=== PATIENT | male | born 1955 | race Caucasian/White ===

== ENCOUNTER 2022-09-22 15:48 | Emergency (ER) | payer MEDICARE ==
[~2022-09-22] VITALS: Ht 185.4 cm; Wt 118.2 kg
[2022-09-22 15:58] VITALS: TEMP 99.1
[2022-09-22 16:21] LABS: BASOPHILS % (AUTO) 0.3 % (0-1); EOSINOPHILS % (AUTO) 0 % (0-6); HEMATOCRIT 43.7 % (42.0-52.0); HEMOGLOBIN 14.1 g/dl (14.0-17.9); LYMPHOCYTES # (AUTO) 0.3 X10'3 (1.1-4.8); LYMPHOCYTES % (AUTO) 7.7 % (21-51); MEAN CORPUSCULAR HEMOGLOBIN 28.6 PG (27.0-31.0); MEAN CORPUSCULAR HGB CONC 32.4 g/dL (33.0-36.5); MEAN CORPUSCULAR VOLUME 88.5 FL (78-98); MEAN PLATELET VOLUME 8.1 FL (7.4-10.4); MONOCYTES # (AUTO) 0.2 X10'3 (0-0.9); MONOCYTES % (AUTO) 6.8 % (2-12); NEUTROPHILS % (AUTO) 85.2 % (42-75); PLATELET COUNT 98 X10'3 (140-440); RED BLOOD COUNT 4.93 X10'6 (4.70-6.10); RED CELL DISTRIBUTION WIDTH 15.4 % (11.5-14.5); WHITE BLOOD COUNT 3.5 X10'3 (4.5-11.0)
[2022-09-22] MEDS ORDERED: ondansetron 4mg rapidly disintigrating tab PO STA (16:26)
[2022-09-22] MEDS ORDERED: pantoprazole 40mg Tablet.DR PO ONE (16:30)
[2022-09-22 16:44] LABS: ALANINE AMINOTRANSFERASE 17 U/L (12-78); ALBUMIN 3.7 G/DL (3.4-5.0); ALBUMIN/GLOBULIN RATIO 0.9 (1.1-1.5); ALKALINE PHOSPHATASE 71 IU/L (46-116); ANION GAP 11 (8-16); ASPARTATE AMINO TRANSFERASE 33 U/L (10-37); BLOOD UREA NITROGEN 17 MG/DL (7-18); BUN/CREATININE RATIO 19.5 (10.0-20.0); CHLORIDE 100 MMOL/L (99-107); CREATININE 0.87 MG/DL (0.60-1.10); GLUCOSE 103 MG/DL (70-104); LIPASE < 50 U/L (73-393); POTASSIUM 3.4 MMOL/L (3.5-5.1); SODIUM 139 MMOL/L (135-145); TOTAL PROTEIN 7.6 G/DL (6.4-8.2); eGFR 87 ML/MIN
[2022-09-22 16:51] LABS: CALCIUM 8.6 MG/DL (8.5-10.1)
[2022-09-22] MEDS ORDERED: magnesium Cl slow-release 64mg tablet PO STA (16:54)
[2022-09-22] MEDS ORDERED: potassium Cl 20 mEq SR tablet PO STA (16:54)
[2022-09-22 17:05] VITALS: BP 167/83; PULSE 79; RESP 15; O2SAT 92
[2022-09-22 17:13] LABS: CLARITY,URINE CLEAR (Clear); COLOR,URINE YELLOW (Yellow); GLUCOSE, URINE NEGATIVE (Neg); KETONES,URINE >=80 mg/dl (Neg); LEUKOCYTE ESTERASE ,URINE NEGATIVE (Neg); NITRITES, URINE NEGATIVE (Neg); OCCULT BLOOD,URINE TRACE-INTACT (Neg); PH,URINE 6.5 (4.8-8.0); PROTEIN,URINE 100 mg/dl (Neg); UROBILINOGEN,URINE >=8.0 E.U/dL (0.2-1.0)
[2022-09-22 17:22] LABS: UA COLLECTION TYPE VOIDED
[2022-09-22 17:23] LABS: MUCUS STRANDS FEW /LPF (Neg); SQUAMOUS EPITHELIAL CELL,UR FEW /LPF (FEW)
[2022-09-22 17:24] LABS: BACTERIA,URINE FEW /HPF (Neg); RBC,URINE 0-2 /HPF (0-2); WBC,URINE 0-4 /HPF (0-4)
[2022-09-22] MEDS ORDERED: acetaminophen 325mg tablet PO ONE (17:50)
[2022-09-22] MEDS ORDERED: POLY17PO10 PO (17:55)
[2022-09-22] MEDS ORDERED: SIME80TA16 PO (17:55)
[2022-09-22] MEDS ORDERED: ONDA4TAB12 PO (17:55)
== END 2022-09-22 18:20 | disposition home or self-care (01) ==
LOC: ER 15:49
DX: R10.33 Periumbilical pain (principal); R10.13 Epigastric pain; R06.02 Shortness of breath; I50.9 Heart failure, unspecified; R11.0 Nausea
CPT/HCPCS: 71045; 80053; 81001; 83690; 83880; 84484; 85025; 93005; 99285

== ENCOUNTER 2024-01-09 12:06 | Inpatient (IN) | payer MEDICARE ==
[2024-01-09] VITALS (10 sets, daily range): BP systolic 132; BP diastolic 70; PULSE 88–121; RESP 18–31; TEMP 97.7; O2SAT 84–98
[~2024-01-09] VITALS: Ht 185.4 cm; Wt 110.4 kg
[~2024-01-09 12:06] MED LIST: ONDA-243 PO; SIME80TA16 PO
[2024-01-09 12:59] LABS: BASOPHILS % (AUTO) 0 % (0-1); EOSINOPHILS % (AUTO) 0.3 % (0-6); HEMATOCRIT 37.6 % (42.0-52.0); HEMOGLOBIN 12.6 g/dl (14.0-17.9); LYMPHOCYTES # (AUTO) 0.2 X10'3 (1.1-4.8); LYMPHOCYTES % (AUTO) 1.7 % (21-51); MEAN CORPUSCULAR HEMOGLOBIN 29.8 PG (27.0-31.0); MEAN CORPUSCULAR HGB CONC 33.4 g/dL (33.0-36.5); MEAN CORPUSCULAR VOLUME 89.1 FL (78-98); MEAN PLATELET VOLUME 7.5 FL (7.4-10.4); MONOCYTES # (AUTO) 0.3 X10'3 (0-0.9); MONOCYTES % (AUTO) 2.4 % (2-12); NEUTROPHILS # (AUTO) 10.3 X10'3 (1.8-7.7); NEUTROPHILS % (AUTO) 95.6 % (42-75); PLATELET COUNT 193 X10'3 (140-440); RED BLOOD COUNT 4.22 X10'6 (4.70-6.10); RED CELL DISTRIBUTION WIDTH 15.6 % (11.5-14.5); WHITE BLOOD COUNT 10.8 X10'3 (4.5-11.0)
[2024-01-09 13:24] LABS: ALBUMIN 2.5 G/DL (3.4-5.0); ALBUMIN/GLOBULIN RATIO 0.6 (1.1-1.5); ALKALINE PHOSPHATASE 49 IU/L (46-116); ANION GAP 9 (8-16); ASPARTATE AMINO TRANSFERASE 19 U/L (10-37); BILIRUBIN,TOTAL 1.3 MG/DL (0.1-1.0); BLOOD UREA NITROGEN 30 MG/DL (7-18); BUN/CREATININE RATIO 25.6 (10.0-20.0); CALCIUM 8.4 MG/DL (8.5-10.1); CHLORIDE 95 MMOL/L (99-107); CREATININE 1.17 MG/DL (0.60-1.10); GLUCOSE 130 MG/DL (70-104); POTASSIUM 3.2 MMOL/L (3.5-5.1); SODIUM 130 MMOL/L (135-145); TOTAL CARBON DIOXIDE 25.7 MMOL/L (24-32); TOTAL PROTEIN 6.9 G/DL (6.4-8.2); eCRCL 66 ML/MIN; eGFR 62 ML/MIN
[2024-01-09 13:25] LABS: ALANINE AMINOTRANSFERASE < 6 U/L (12-78)
[2024-01-09 13:31] LABS: PLATELET ESTIMATE NORMAL; TOTAL CELLS COUNTED 100
[2024-01-09] MEDS: ipratropium/albuterol 3ml nebule NEB ONE (13:34)
[2024-01-09] MEDS: METHYLPREDNISOLONE SOD SUCC 125 MG/2ML INJ. IV SCH (14:20)
[2024-01-09] MEDS ORDERED: iohexol 350MG/ML 100ml bottle IV ONE (15:16)
[2024-01-09] MEDS ORDERED: magnesium sulf-water 4G/100mL 100 ML IV PRN (15:30)
[2024-01-09] MEDS ORDERED: ondansetron/PF 4mg/2ml inj IV PRN (15:30)
[2024-01-09] MEDS ORDERED: potassium Cl 20 mEq SR tablet PO PRN (15:30)
[2024-01-09] MEDS ORDERED: potassium Cl 40MEQ/1/2NS 520ml 520 ML IV PRN (15:30)
[2024-01-09] MEDS ORDERED: magnesium Cl slow-release 64mg tablet PO PRN (15:30)
[2024-01-09] MEDS ORDERED: magnesium sulf-water 2g/50mL 50 ML IV PRN (15:30)
[2024-01-09] MEDS ORDERED: acetaminophen 325mg tablet PO PRN (15:30)
[2024-01-09 15:54] LABS: APTT 29 SECONDS (22-32); D-DIMER 2.05 MG/L FEU (0-0.50); INR 1.1 INR
[2024-01-09] MEDS: albuterol 2.5 MG/3 ML nebule NEB SCH (16:00)
[2024-01-09] MEDS: albuterol 2.5 MG/3 ML nebule NEB ONE (16:03)
[2024-01-09] MEDS: normal saline 1000ml 1,000 ML IV ONE (16:10)
[2024-01-09] MEDS: azithromycin/NS 500mg/250ml 250 ML IV ONE (16:11)
[2024-01-09] MEDS: normal saline 1000ml 1,000 ML IV SCH (16:12)
[2024-01-09] MEDS: CefTRIAXone/D5W-Rocephin 1gm 50 ML IV SCH (16:13)
[2024-01-09 16:56] LABS: BILIRUBIN,URINE NEGATIVE (Neg); CLARITY,URINE CLEAR (Clear); COLOR,URINE YELLOW (Yellow); GLUCOSE, URINE NEGATIVE (Neg); KETONES,URINE TRACE mg/dl (Neg); LEUKOCYTE ESTERASE ,URINE NEGATIVE (Neg); NITRITES, URINE NEGATIVE (Neg); OCCULT BLOOD,URINE MODERATE (Neg); PH,URINE 6.5 (4.8-8.0); PROTEIN,URINE 100 mg/dl (Neg)
[2024-01-09 17:19] LABS: UA COLLECTION TYPE NON-SPECIFIED
[2024-01-09] MEDS: morphine 2 MG/ML inj. syringe IV PRN (17:21)
[2024-01-09 17:24] LABS: AMORPHOUS PHOSPHATES 1+; BACTERIA,URINE FEW /HPF (Neg); SQUAMOUS EPITHELIAL CELL,UR FEW /LPF (FEW); WBC,URINE 0-4 /HPF (0-4)
[2024-01-09 17:25] LABS: FINE GRANULAR CAST 0-3 /LPF (NEGATIVE)
[2024-01-09] MEDS: HYDROcodone/acetaminophen 5mg/325mg tablet PO PRN (17:54)
[2024-01-09] MEDS ORDERED: IBUP-1985 PO (18:05)
[2024-01-09] MEDS ORDERED: FURO40TA4 PO (18:05)
[2024-01-09] MEDS ORDERED: SILD100T70 PO (18:05)
[2024-01-09] MEDS ORDERED: LISI20TA28 PO (18:05)
[2024-01-09] MEDS ORDERED: CARV6.253 PO (18:05)
[2024-01-09] MEDS ORDERED: POTA8CAP20 PO (18:05)
[2024-01-09] MEDS: acetaminophen 325mg tablet PO PRN (22:17)
[2024-01-09] MEDS: methylPREDNISolone sod succ 125mg/2ml vial IV SCH (22:28)
[2024-01-10] VITALS (18 sets, daily range): BP systolic 103–150; BP diastolic 56–87; PULSE 65–108; RESP 16–28; TEMP 96.4–98.3; O2SAT 83–98
[2024-01-10 08:08] LABS: BASOPHILS % (AUTO) 0 % (0-1); EOSINOPHILS % (AUTO) 0.1 % (0-6); HEMATOCRIT 37.1 % (42.0-52.0); HEMOGLOBIN 12.3 g/dl (14.0-17.9); LYMPHOCYTES # (AUTO) 0.3 X10'3 (1.1-4.8); MEAN CORPUSCULAR HEMOGLOBIN 29.5 PG (27.0-31.0); MEAN CORPUSCULAR HGB CONC 33.2 g/dL (33.0-36.5); MEAN PLATELET VOLUME 7.5 FL (7.4-10.4); MONOCYTES # (AUTO) 0.3 X10'3 (0-0.9); MONOCYTES % (AUTO) 3.3 % (2-12); NEUTROPHILS # (AUTO) 9.9 X10'3 (1.8-7.7); NEUTROPHILS % (AUTO) 93.6 % (42-75); PLATELET COUNT 225 X10'3 (140-440); RED BLOOD COUNT 4.17 X10'6 (4.70-6.10); RED CELL DISTRIBUTION WIDTH 15.9 % (11.5-14.5); WHITE BLOOD COUNT 10.6 X10'3 (4.5-11.0)
[2024-01-10 08:11] LABS: ALANINE AMINOTRANSFERASE 9 U/L (12-78); ALBUMIN 2.2 G/DL (3.4-5.0); ALBUMIN/GLOBULIN RATIO 0.5 (1.1-1.5); ALKALINE PHOSPHATASE 49 IU/L (46-116); ANION GAP 9 (8-16); ASPARTATE AMINO TRANSFERASE 17 U/L (10-37); BILIRUBIN,TOTAL 0.5 MG/DL (0.1-1.0); BLOOD UREA NITROGEN 30 MG/DL (7-18); CALCIUM 8.6 MG/DL (8.5-10.1); CHLORIDE 101 MMOL/L (99-107); CREATININE 1.07 MG/DL (0.60-1.10); GLUCOSE 141 MG/DL (70-104); POTASSIUM 3.2 MMOL/L (3.5-5.1); SODIUM 137 MMOL/L (135-145); TOTAL CARBON DIOXIDE 26.8 MMOL/L (24-32); TOTAL PROTEIN 6.8 G/DL (6.4-8.2); eCRCL 71 ML/MIN; eGFR 68 ML/MIN
[2024-01-10] MEDS: azithromycin/NS 500mg/250ml 250 ML IV SCH (08:20)
[2024-01-10] MEDS: CefTRIAXone 2gm/D5W 50ml BAG 50 ML IV SCH (08:20)
[2024-01-10 10:24] LABS: ANISOCYTOSIS 1+; PLATELET ESTIMATE NORMAL; POLYCHROMASIA FEW; TOTAL CELLS COUNTED 100; TOXIC GRANULATION 1+
[2024-01-10] MEDS: potassium Cl 20 mEq SR tablet PO PRN (10:33)
[2024-01-10] MEDS: magnesium hydroxide 30ml (MOM) UD suspension PO ONE (12:17)
[2024-01-10] MEDS: carvedilol 6.25mg tablet PO SCH (19:25)
[2024-01-10] MEDS: heparin, porcine 5000 units/ml vial SQ SCH (19:25)
[2024-01-11] VITALS (22 sets, daily range): BP systolic 134–163; BP diastolic 78–84; PULSE 78–93; RESP 15–20; TEMP 97.4–98.4; O2SAT 90–96
[2024-01-11 06:21] LABS: BASOPHILS % (AUTO) 0 % (0-1); EOSINOPHILS % (AUTO) 0 % (0-6); HEMATOCRIT 34.7 % (42.0-52.0); HEMOGLOBIN 11.4 g/dl (14.0-17.9); LYMPHOCYTES # (AUTO) 0.3 X10'3 (1.1-4.8); LYMPHOCYTES % (AUTO) 2.9 % (21-51); MEAN CORPUSCULAR HEMOGLOBIN 29.6 PG (27.0-31.0); MEAN CORPUSCULAR HGB CONC 32.9 g/dL (33.0-36.5); MEAN CORPUSCULAR VOLUME 89.8 FL (78-98); MEAN PLATELET VOLUME 7.5 FL (7.4-10.4); MONOCYTES # (AUTO) 0.4 X10'3 (0-0.9); MONOCYTES % (AUTO) 3.6 % (2-12); NEUTROPHILS # (AUTO) 11.2 X10'3 (1.8-7.7); NEUTROPHILS % (AUTO) 93.5 % (42-75); PLATELET COUNT 249 X10'3 (140-440); RED BLOOD COUNT 3.86 X10'6 (4.70-6.10); RED CELL DISTRIBUTION WIDTH 16.2 % (11.5-14.5)
[2024-01-11 06:30] LABS: ALANINE AMINOTRANSFERASE 11 U/L (12-78); ALBUMIN 2.2 G/DL (3.4-5.0); ALBUMIN/GLOBULIN RATIO 0.5 (1.1-1.5); ALKALINE PHOSPHATASE 52 IU/L (46-116); ANION GAP 6 (8-16); ASPARTATE AMINO TRANSFERASE 25 U/L (10-37); BILIRUBIN,TOTAL 0.3 MG/DL (0.1-1.0); BLOOD UREA NITROGEN 46 MG/DL (7-18); BUN/CREATININE RATIO 43.8 (10.0-20.0); CALCIUM 8.5 MG/DL (8.5-10.1); CHLORIDE 102 MMOL/L (99-107); CREATININE 1.05 MG/DL (0.60-1.10); GLUCOSE 135 MG/DL (70-104); POTASSIUM 4.1 MMOL/L (3.5-5.1); SODIUM 136 MMOL/L (135-145); TOTAL CARBON DIOXIDE 27.9 MMOL/L (24-32); TOTAL PROTEIN 6.6 G/DL (6.4-8.2); eCRCL 73 ML/MIN; eGFR 70 ML/MIN
[2024-01-11 07:02] LABS: ANISOCYTOSIS 1+; PLATELET ESTIMATE NORMAL; TOTAL CELLS COUNTED 100
[2024-01-11] MEDS: lisinopril 20mg tablet PO SCH (08:02)
[2024-01-11] MEDS: Melatonin 3mg tablet PO PRN (19:42)
[2024-01-11] MEDS: methylPREDNISolone sod succ/PF 40mg inj. IV SCH (20:13)
[2024-01-12] VITALS (18 sets, daily range): BP systolic 116–163; BP diastolic 84–117; PULSE 79–109; RESP 15–24; TEMP 97.6–97.9; O2SAT 76–94
[2024-01-12] MEDS: temazepam 15mg capsule PO PRN (01:03)
[2024-01-12 05:46] LABS: BASOPHILS % (AUTO) 0.1 % (0-1); EOSINOPHILS % (AUTO) 0.1 % (0-6); HEMATOCRIT 36.6 % (42.0-52.0); HEMOGLOBIN 11.8 g/dl (14.0-17.9); LYMPHOCYTES # (AUTO) 0.5 X10'3 (1.1-4.8); LYMPHOCYTES % (AUTO) 4.2 % (21-51); MEAN CORPUSCULAR HEMOGLOBIN 28.9 PG (27.0-31.0); MEAN CORPUSCULAR HGB CONC 32.2 g/dL (33.0-36.5); MEAN CORPUSCULAR VOLUME 89.9 FL (78-98); MEAN PLATELET VOLUME 6.9 FL (7.4-10.4); MONOCYTES # (AUTO) 0.8 X10'3 (0-0.9); MONOCYTES % (AUTO) 6.2 % (2-12); NEUTROPHILS # (AUTO) 11.2 X10'3 (1.8-7.7); NEUTROPHILS % (AUTO) 89.4 % (42-75); PLATELET COUNT 274 X10'3 (140-440); RED BLOOD COUNT 4.07 X10'6 (4.70-6.10); RED CELL DISTRIBUTION WIDTH 16.1 % (11.5-14.5); WHITE BLOOD COUNT 12.5 X10'3 (4.5-11.0)
[2024-01-12 06:15] LABS: ALANINE AMINOTRANSFERASE 12 U/L (12-78); ALBUMIN 2.3 G/DL (3.4-5.0); ALBUMIN/GLOBULIN RATIO 0.5 (1.1-1.5); ALKALINE PHOSPHATASE 52 IU/L (46-116); ANION GAP 3 (8-16); ASPARTATE AMINO TRANSFERASE 21 U/L (10-37); BILIRUBIN,TOTAL 0.4 MG/DL (0.1-1.0); BLOOD UREA NITROGEN 45 MG/DL (7-18); BUN/CREATININE RATIO 46.9 (10.0-20.0); CALCIUM 8.7 MG/DL (8.5-10.1); CHLORIDE 103 MMOL/L (99-107); CREATININE 0.96 MG/DL (0.60-1.10); GLUCOSE 135 MG/DL (70-104); POTASSIUM 4.3 MMOL/L (3.5-5.1); SODIUM 139 MMOL/L (135-145); TOTAL CARBON DIOXIDE 33.5 MMOL/L (24-32); TOTAL PROTEIN 6.6 G/DL (6.4-8.2); eCRCL 81 ML/MIN; eGFR 77 ML/MIN
[2024-01-12 07:43] LABS: ANISOCYTOSIS 1+; PLATELET ESTIMATE NORMAL; TOTAL CELLS COUNTED 100
[2024-01-12 08:04] LABS: ABG BASE EXCESS -0.3 mmol/L (-2.0-3.0); ABG OXYGEN SATURATION 92.3 % (94.0-98.0); ABG PCO2 (T) 48.4 mmHg (35.0-48.0); ABG PH (T) 7.346 (7.350-7.450); ABG PO2 (T) 61.6 mmHg (83.0-108.0); ALLEN'S TEST POSITIVE; FCOHb 0.4 % (0.5-1.5); FHHb 7.7 % (0.0-5.0); FLOW 12 L/min; FO2Hb 91.9 % (94.0-98.0); MODE MASK - VENTI; PATIENT TEMPERATURE 36.5; TOTAL HEMOGLOBIN 13.2 G/dl (13.5-17.5)
[2024-01-12] MEDS ORDERED: magnesium hydroxide 30ml (MOM) UD suspension PO PRN (10:25)
[2024-01-12] MEDS: furosemide 40mg tablet PO SCH (16:53)
[2024-01-13] VITALS (19 sets, daily range): BP systolic 103–146; BP diastolic 68–75; PULSE 69–87; RESP 14–22; TEMP 97.6–98.8; O2SAT 90–95
[2024-01-13 06:55] LABS: BASOPHILS % (AUTO) 0.1 % (0-1); EOSINOPHILS % (AUTO) 0 % (0-6); HEMATOCRIT 38.1 % (42.0-52.0); HEMOGLOBIN 12.3 g/dl (14.0-17.9); LYMPHOCYTES # (AUTO) 0.8 X10'3 (1.1-4.8); LYMPHOCYTES % (AUTO) 5.4 % (21-51); MEAN CORPUSCULAR HGB CONC 32.2 g/dL (33.0-36.5); MEAN PLATELET VOLUME 6.9 FL (7.4-10.4); MONOCYTES # (AUTO) 1.2 X10'3 (0-0.9); MONOCYTES % (AUTO) 8.4 % (2-12); NEUTROPHILS # (AUTO) 12.8 X10'3 (1.8-7.7); NEUTROPHILS % (AUTO) 86.1 % (42-75); PLATELET COUNT 315 X10'3 (140-440); RED BLOOD COUNT 4.24 X10'6 (4.70-6.10); RED CELL DISTRIBUTION WIDTH 15.8 % (11.5-14.5); WHITE BLOOD COUNT 14.8 X10'3 (4.5-11.0)
[2024-01-13 06:58] LABS: ALANINE AMINOTRANSFERASE 14 U/L (12-78); ALBUMIN 2.3 G/DL (3.4-5.0); ALBUMIN/GLOBULIN RATIO 0.6 (1.1-1.5); ALKALINE PHOSPHATASE 58 IU/L (46-116); ANION GAP 4 (8-16); ASPARTATE AMINO TRANSFERASE 22 U/L (10-37); BILIRUBIN,TOTAL 0.4 MG/DL (0.1-1.0); BLOOD UREA NITROGEN 39 MG/DL (7-18); BUN/CREATININE RATIO 44.8 (10.0-20.0); CALCIUM 8.3 MG/DL (8.5-10.1); CHLORIDE 102 MMOL/L (99-107); CREATININE 0.87 MG/DL (0.60-1.10); GLUCOSE 112 MG/DL (70-104); POTASSIUM 4.1 MMOL/L (3.5-5.1); SODIUM 139 MMOL/L (135-145); TOTAL CARBON DIOXIDE 33.5 MMOL/L (24-32); TOTAL PROTEIN 6.3 G/DL (6.4-8.2); eCRCL 89 ML/MIN; eGFR 87 ML/MIN
[2024-01-13 08:06] LABS: PLATELET ESTIMATE NORMAL; STOMATOCYTES FEW; TOTAL CELLS COUNTED 100
[2024-01-13] MEDS: guaiFENesin ER 600mg tablet PO SCH (15:49)
[2024-01-13] MEDS: lactose-reduced food (Ensure Enlive) - 237ml bottle PO SCH (17:59)
[2024-01-14] VITALS (27 sets, daily range): BP systolic 96–168; BP diastolic 51–92; PULSE 74–90; RESP 15–23; TEMP 97.3–99; O2SAT 87–97
[2024-01-14 06:11] LABS: BASOPHILS % (AUTO) 0.1 % (0-1); EOSINOPHILS % (AUTO) 0 % (0-6); HEMATOCRIT 37.3 % (42.0-52.0); HEMOGLOBIN 11.9 g/dl (14.0-17.9); LYMPHOCYTES # (AUTO) 0.8 X10'3 (1.1-4.8); LYMPHOCYTES % (AUTO) 6.6 % (21-51); MEAN CORPUSCULAR HEMOGLOBIN 28.5 PG (27.0-31.0); MONOCYTES # (AUTO) 0.5 X10'3 (0-0.9); MONOCYTES % (AUTO) 4.3 % (2-12); NEUTROPHILS # (AUTO) 10.5 X10'3 (1.8-7.7); PLATELET COUNT 250 X10'3 (140-440); RED BLOOD COUNT 4.19 X10'6 (4.70-6.10); RED CELL DISTRIBUTION WIDTH 15.4 % (11.5-14.5); WHITE BLOOD COUNT 11.8 X10'3 (4.5-11.0)
[2024-01-14 06:21] LABS: ALANINE AMINOTRANSFERASE 16 U/L (12-78); ALBUMIN 2.3 G/DL (3.4-5.0); ALBUMIN/GLOBULIN RATIO 0.6 (1.1-1.5); ALKALINE PHOSPHATASE 41 IU/L (46-116); ANION GAP 5 (8-16); ASPARTATE AMINO TRANSFERASE 17 U/L (10-37); BILIRUBIN,TOTAL 0.4 MG/DL (0.1-1.0); BLOOD UREA NITROGEN 32 MG/DL (7-18); BUN/CREATININE RATIO 38.1 (10.0-20.0); CALCIUM 8.3 MG/DL (8.5-10.1); CHLORIDE 103 MMOL/L (99-107); CREATININE 0.84 MG/DL (0.60-1.10); GLUCOSE 120 MG/DL (70-104); POTASSIUM 4.5 MMOL/L (3.5-5.1); SODIUM 141 MMOL/L (135-145); TOTAL CARBON DIOXIDE 33.4 MMOL/L (24-32); TOTAL PROTEIN 5.9 G/DL (6.4-8.2); eCRCL 92 ML/MIN; eGFR 90 ML/MIN
[2024-01-14] MEDS ORDERED: metoprolol tartrate 1mg/ml inj IV PRN (12:35)
[2024-01-14] MEDS ORDERED: aminophylline 250mg/10ml inj. IV PRN (12:35)
[2024-01-14] MEDS ORDERED: nitroGLYCERIN 0.4mg SUBLingual tab SL PRN (12:35)
[2024-01-14] MEDS: regadenoson 0.4mg/5ml syringe IV PRN (15:46)
[2024-01-15] VITALS (11 sets, daily range): BP systolic 132–168; BP diastolic 74–76; PULSE 72–85; RESP 16–20; TEMP 98.2–98.5; O2SAT 93–96
[2024-01-15 09:16] LABS: BASOPHILS % (AUTO) 0.1 % (0-1); EOSINOPHILS % (AUTO) 0.2 % (0-6); HEMATOCRIT 37.8 % (42.0-52.0); HEMOGLOBIN 12.3 g/dl (14.0-17.9); LYMPHOCYTES # (AUTO) 0.8 X10'3 (1.1-4.8); LYMPHOCYTES % (AUTO) 7.4 % (21-51); MEAN CORPUSCULAR HEMOGLOBIN 28.8 PG (27.0-31.0); MEAN CORPUSCULAR HGB CONC 32.5 g/dL (33.0-36.5); MEAN CORPUSCULAR VOLUME 88.5 FL (78-98); MEAN PLATELET VOLUME 7.1 FL (7.4-10.4); MONOCYTES # (AUTO) 0.3 X10'3 (0-0.9); MONOCYTES % (AUTO) 2.3 % (2-12); PLATELET COUNT 265 X10'3 (140-440); RED BLOOD COUNT 4.27 X10'6 (4.70-6.10); RED CELL DISTRIBUTION WIDTH 15.5 % (11.5-14.5); WHITE BLOOD COUNT 11.1 X10'3 (4.5-11.0)
[2024-01-15 09:28] LABS: ALANINE AMINOTRANSFERASE 14 U/L (12-78); ALBUMIN 2.4 G/DL (3.4-5.0); ALBUMIN/GLOBULIN RATIO 0.7 (1.1-1.5); ALKALINE PHOSPHATASE 35 IU/L (46-116); ANION GAP 1 (8-16); ASPARTATE AMINO TRANSFERASE 17 U/L (10-37); BILIRUBIN,TOTAL 0.5 MG/DL (0.1-1.0); BLOOD UREA NITROGEN 26 MG/DL (7-18); BUN/CREATININE RATIO 36.1 (10.0-20.0); CHLORIDE 101 MMOL/L (99-107); CREATININE 0.72 MG/DL (0.60-1.10); GLUCOSE 138 MG/DL (70-104); POTASSIUM 3.9 MMOL/L (3.5-5.1); SODIUM 136 MMOL/L (135-145); TOTAL CARBON DIOXIDE 33.6 MMOL/L (24-32); TOTAL PROTEIN 5.7 G/DL (6.4-8.2); eCRCL 108 ML/MIN; eGFR > 90 ML/MIN
[2024-01-15 10:31] LABS: PLATELET ESTIMATE NORMAL; TOTAL CELLS COUNTED 100
== END 2024-01-15 11:28 | DRG 871 ==
LOC: ER 12:06 → ED HOLD 15:36 → PCU 3S 20:30
PROVIDERS: ADMIT Internal Medicine; ATTEND Internal Medicine
PROC: B32T1ZZ Computerized Tomography (CT Scan) of Left Pulmonary Artery using Low Osmolar Contrast (ICD-10-PCS; 2024-01-09)
PROC: B3201ZZ Computerized Tomography (CT Scan) of Thoracic Aorta using Low Osmolar Contrast (ICD-10-PCS; 2024-01-09)
PROC: B32S1ZZ Computerized Tomography (CT Scan) of Right Pulmonary Artery using Low Osmolar Contrast (ICD-10-PCS; 2024-01-09)
PROC: 4A02XM4 Measurement of Cardiac Total Activity, External Approach (ICD-10-PCS; principal; 2024-01-14)
PROC: 3E033HZ Introduction of Radioactive Substance into Peripheral Vein, Percutaneous Approach (ICD-10-PCS; 2024-01-14)
DX: A41.9 Sepsis, unspecified organism (principal); G92.8 Other toxic encephalopathy; J96.01 Acute respiratory failure with hypoxia; J15.69 Pneumonia due to other Gram-negative bacteria; J44.1 Chronic obstructive pulmonary disease with (acute) exacerbation; J44.0 Chronic obstructive pulmonary disease with (acute) lower respiratory infection; R04.2 Hemoptysis; E87.1 Hypo-osmolality and hyponatremia; I50.30 Unspecified diastolic (congestive) heart failure; E87.29 Other acidosis; Z20.822 Contact with and (suspected) exposure to COVID-19; I11.0 Hypertensive heart disease with heart failure; E87.6 Hypokalemia; D64.9 Anemia, unspecified; I50.9 Heart failure, unspecified; Z87.891 Personal history of nicotine dependence; Z79.899 Other long term (current) drug therapy
CPT/HCPCS: 36415; 36600; 71045; 71275; 78452; 80053; 81001; 82803; 83605; 83880; 84145; 84484; 85007; 85018; 85025; 85379; 85610; 85651; 85730; 87040; 87081; 87502; 87503; 87811; 93005; 93017; 93306; 94640; 94760; 96374; 97161; 97530; 99291; A4615; A6258; A9500; G0378; J0456; J0696; J1644; J2270; J2785; J2919; J2930; J7030; Q9967

== ENCOUNTER 2024-03-02 12:24 | Inpatient (IN) | payer MEDICARE ==
[2024-03-02] VITALS (9 sets, daily range): BP systolic 108–154; BP diastolic 60–94; PULSE 95–108; RESP 16–33; TEMP 98.7; O2SAT 95–100
[~2024-03-02] VITALS: Ht 185.4 cm; Wt 109.1 kg
[~2024-03-02 12:24] MED LIST changes: +CARV6.253 PO; +FURO40TA4 PO; +IBUP-1985 PO; +LISI20TA28 PO; +POTA8CAP20 PO; +SILD100T70 PO
[2024-03-02 14:26] LABS: BASOPHILS % (AUTO) 0.3 % (0-1); EOSINOPHILS % (AUTO) 0.2 % (0-6); HEMATOCRIT 37.6 % (42.0-52.0); LYMPHOCYTES # (AUTO) 0.6 X10'3 (1.1-4.8); MEAN CORPUSCULAR HEMOGLOBIN 29.5 PG (27.0-31.0); MEAN CORPUSCULAR HGB CONC 31.8 g/dL (33.0-36.5); MEAN CORPUSCULAR VOLUME 92.6 FL (78-98); MEAN PLATELET VOLUME 7.2 FL (7.4-10.4); MONOCYTES # (AUTO) 0.7 X10'3 (0-0.9); MONOCYTES % (AUTO) 6.5 % (2-12); PLATELET COUNT 201 X10'3 (140-440); RED BLOOD COUNT 4.06 X10'6 (4.70-6.10); RED CELL DISTRIBUTION WIDTH 17.6 % (11.5-14.5); WHITE BLOOD COUNT 11.4 X10'3 (4.5-11.0)
[2024-03-02] MEDS: ondansetron/PF 4mg/2ml inj IV PRN (14:28)
[2024-03-02] MEDS: morphine 4 MG/ML inj SYRINge IV ONE (14:30)
[2024-03-02 14:55] LABS: ALANINE AMINOTRANSFERASE 7 U/L (12-78); ALBUMIN 3.2 G/DL (3.4-5.0); ALKALINE PHOSPHATASE 52 IU/L (46-116); ANION GAP 8 (8-16); ASPARTATE AMINO TRANSFERASE 9 U/L (10-37); BLOOD UREA NITROGEN 20 MG/DL (7-18); CALCIUM 8.4 MG/DL (8.5-10.1); CHLORIDE 103 MMOL/L (99-107); GLUCOSE 103 MG/DL (70-104); POTASSIUM 3.9 MMOL/L (3.5-5.1); SODIUM 137 MMOL/L (135-145); TOTAL CARBON DIOXIDE 25.8 MMOL/L (24-32); TOTAL PROTEIN 6.5 G/DL (6.4-8.2); eCRCL 96 ML/MIN; eGFR > 90 ML/MIN
[2024-03-02] MEDS ORDERED: iohexol 300mg/ml 100ml inj. ONE (15:24)
[2024-03-02] MEDS: piperacillin/tazo 3.375gm/50ml 50 ML IV ONE (15:26)
[2024-03-02] MEDS: acetaminophen 1,000mg/100ml IV 100 ML IV ONE ×2 (15:26→20:03)
[2024-03-02 16:50] LABS: BILIRUBIN,URINE NEGATIVE (Neg); CLARITY,URINE CLEAR (Clear); COLOR,URINE YELLOW (Yellow); GLUCOSE, URINE NEGATIVE (Neg); KETONES,URINE NEGATIVE (Neg); LEUKOCYTE ESTERASE ,URINE NEGATIVE (Neg); NITRITES, URINE NEGATIVE (Neg); OCCULT BLOOD,URINE NEGATIVE (Neg); PH,URINE 7.5 (4.8-8.0); PROTEIN,URINE TRACE mg/dl (Neg); UROBILINOGEN,URINE 0.2 E.U/dL (0.2-1.0)
[2024-03-02 16:57] LABS: UA COLLECTION TYPE CLN CATCH MIDSTREAM
[2024-03-02 16:59] LABS: BACTERIA,URINE NONE SEEN /HPF (Neg); MUCUS STRANDS NONE SEEN /LPF (Neg); RBC,URINE NONE SEEN /HPF (0-2); SQUAMOUS EPITHELIAL CELL,UR FEW /LPF (FEW); WBC,URINE 0-4 /HPF (0-4)
[2024-03-02] MEDS ORDERED: magnesium sulf-water 4G/100mL 100 ML IV PRN (17:45)
[2024-03-02] MEDS ORDERED: acetaminophen 325mg tablet PO PRN ×2 (17:45)
[2024-03-02] MEDS ORDERED: magnesium hydroxide 30ml (MOM) UD suspension PO PRN (17:45)
[2024-03-02] MEDS ORDERED: morphine 2 MG/ML inj. syringe IV PRN ×3 (17:45→18:50)
[2024-03-02] MEDS ORDERED: potassium Cl 20 mEq SR tablet PO PRN ×2 (17:45)
[2024-03-02] MEDS ORDERED: magnesium Cl slow-release 64mg tablet PO PRN (17:45)
[2024-03-02] MEDS ORDERED: ondansetron/PF 4mg/2ml inj IV PRN ×2 (17:45→18:50)
[2024-03-02] MEDS ORDERED: potassium Cl 40MEQ/1/2NS 520ml 520 ML IV PRN (17:45)
[2024-03-02] MEDS ORDERED: magnesium sulf-water 2g/50mL 50 ML IV PRN (17:45)
[2024-03-02] MEDS: piperacillin/tazo 3.375gm/50ml 50 ML IV SCH (17:50)
[2024-03-02] MEDS: normal saline 1000ml 1,000 ML IV SCH (18:31)
[2024-03-02] MEDS: ketorolac trometh 15mg/ml vial 15 MG/ML ML IV ONE (18:31)
[2024-03-02] MEDS ORDERED: sevoflurane 250ml liquid IH ONE (18:49)
[2024-03-02] MEDS ORDERED: hydrALAZINE 20mg/ml inj. IV PRN (18:50)
[2024-03-02] MEDS ORDERED: labetalol 20mg/4ml (5mg/ml) syringe IV PRN (18:50)
[2024-03-02] MEDS ORDERED: meperidine/PF 25mg/ml syringe IV PRN ×3 (18:50)
[2024-03-02] MEDS ORDERED: LIDOcaine 1% (10mg/ml)w/preservative inj. 20ml MDV ONE (18:50)
[2024-03-02] MEDS ORDERED: proCHLORperazine 10 MG/2 ml inj IV PRN (18:50)
[2024-03-02] MEDS ORDERED: morphine 4 MG/ML inj SYRINge IV PRN (18:50)
[2024-03-02] MEDS ORDERED: BUPIVAcaine 2.5mg/ml inj 50ml vial (contains preservative) ONE (18:50)
[2024-03-02] MEDS: ringers solution, lacted 1,000 ML IV SCH (18:50)
[2024-03-02] MEDS ORDERED: midazolam 1 mg/ML 2ml injection ONE (18:54)
[2024-03-02] MEDS ORDERED: fentaNYL /PF 50mcg/ml 5ml ampule ONE (19:19)
[2024-03-02] MEDS ORDERED: rocuronium 10mg/ml inj IV ONE (19:19)
[2024-03-02] MEDS ORDERED: ceFOXitin 1000 MG inj ONE ×2 (19:19)
[2024-03-02] MEDS ORDERED: propofol inj 20 ML IV ONE (19:19)
[2024-03-02] MEDS ORDERED: ePHEDrine 50MG/ML INJ. ONE (19:19)
[2024-03-02] MEDS ORDERED: 0.9 % SODIUM CHLORIDE 10 ML VIAL ONE (19:19)
[2024-03-02] MEDS ORDERED: LIDOcaine 2% (20mg/ml) 5ml vial ONE (19:19)
[2024-03-02] MEDS ORDERED: ondansetron/PF 4mg/2ml inj ONE (19:20)
[2024-03-02] MEDS ORDERED: dexamethasone sod phosphate 4mg/ml inj. ONE (19:20)
[2024-03-02] MEDS ORDERED: glycopyrrolate 0.2mg/ml inj ONE (19:35)
[2024-03-02] MEDS ORDERED: neostigmine methylsulfate 1 MG/ML 10ml vial ONE (19:35)
[2024-03-02] MEDS: BUPIVAcaine 2.5mg/ml inj 50ml vial (contains preservative) SQ ONE (19:40)
[2024-03-02] MEDS ORDERED: naloxone 0.4 mg/ml inj IV PRN (19:40)
[2024-03-02] MEDS ORDERED: furosemide 40mg/4ml inj ONE (19:47)
[2024-03-02] MEDS ORDERED: albuterol 60 PUFF/8GM Inhaler (90mcg/1 puff) IH ONE (19:50)
[2024-03-02] MEDS: heparin, porcine 5000 units/ml vial SQ SCH (22:55)
[2024-03-02] MEDS: polyethylene glycol 3350 17gm powd pack PO SCH (22:56)
[2024-03-03 02:00] VITALS: BP 121/75; PULSE 91; RESP 15; TEMP 97.8; O2SAT 96
[2024-03-03 05:59] LABS: BASOPHILS % (AUTO) 0.4 % (0-1); EOSINOPHILS % (AUTO) 0 % (0-6); HEMATOCRIT 33.3 % (42.0-52.0); HEMOGLOBIN 11.1 g/dl (14.0-17.9); LYMPHOCYTES # (AUTO) 0.3 X10'3 (1.1-4.8); LYMPHOCYTES % (AUTO) 2.5 % (21-51); MEAN CORPUSCULAR HEMOGLOBIN 30.3 PG (27.0-31.0); MEAN CORPUSCULAR HGB CONC 33.2 g/dL (33.0-36.5); MEAN CORPUSCULAR VOLUME 91.3 FL (78-98); MONOCYTES # (AUTO) 0.3 X10'3 (0-0.9); MONOCYTES % (AUTO) 2.4 % (2-12); NEUTROPHILS # (AUTO) 10.5 X10'3 (1.8-7.7); NEUTROPHILS % (AUTO) 94.7 % (42-75); PLATELET COUNT 204 X10'3 (140-440); RED BLOOD COUNT 3.65 X10'6 (4.70-6.10); RED CELL DISTRIBUTION WIDTH 17.2 % (11.5-14.5); WHITE BLOOD COUNT 11.1 X10'3 (4.5-11.0)
[2024-03-03 06:00] VITALS: BP 133/68; PULSE 84; RESP 18; TEMP 98.2; O2SAT 84
[2024-03-03 06:17] LABS: ALANINE AMINOTRANSFERASE 11 U/L (12-78); ALBUMIN/GLOBULIN RATIO 0.8 (1.1-1.5); ALKALINE PHOSPHATASE 54 IU/L (46-116); ANION GAP 6 (8-16); ASPARTATE AMINO TRANSFERASE 8 U/L (10-37); BILIRUBIN,TOTAL 0.9 MG/DL (0.1-1.0); BLOOD UREA NITROGEN 21 MG/DL (7-18); BUN/CREATININE RATIO 23.3 (10.0-20.0); CALCIUM 8.6 MG/DL (8.5-10.1); CHLORIDE 103 MMOL/L (99-107); GLUCOSE 173 MG/DL (70-104); SODIUM 137 MMOL/L (135-145); TOTAL PROTEIN 6.9 G/DL (6.4-8.2); eCRCL 85 ML/MIN; eGFR 83 ML/MIN
[2024-03-03] MEDS: HYDROcodone/acetaminophen 10/325mg tab PO PRN (08:02)
[2024-03-03 10:00] VITALS: BP 124/65; PULSE 83; RESP 18; TEMP 97.9; O2SAT 98
[2024-03-03 18:00] VITALS: BP 127/67; PULSE 90; RESP 16; TEMP 97.7; O2SAT 97
[2024-03-03 22:00] VITALS: BP 143/72; PULSE 94; RESP 16; TEMP 97.3; O2SAT 94
[2024-03-04 06:00] VITALS: BP 128/59; PULSE 82; RESP 16; TEMP 97.5; O2SAT 95
[2024-03-04 06:07] LABS: BASOPHILS % (AUTO) 0.2 % (0-1); EOSINOPHILS # (AUTO) 0.1 X10'3 (0-0.9); EOSINOPHILS % (AUTO) 1.2 % (0-6); HEMATOCRIT 32.2 % (42.0-52.0); HEMOGLOBIN 10.6 g/dl (14.0-17.9); LYMPHOCYTES # (AUTO) 0.9 X10'3 (1.1-4.8); LYMPHOCYTES % (AUTO) 11.4 % (21-51); MEAN CORPUSCULAR HEMOGLOBIN 29.9 PG (27.0-31.0); MEAN CORPUSCULAR HGB CONC 32.8 g/dL (33.0-36.5); MEAN CORPUSCULAR VOLUME 91.3 FL (78-98); MEAN PLATELET VOLUME 6.8 FL (7.4-10.4); MONOCYTES # (AUTO) 0.4 X10'3 (0-0.9); MONOCYTES % (AUTO) 5.3 % (2-12); NEUTROPHILS # (AUTO) 6.6 X10'3 (1.8-7.7); NEUTROPHILS % (AUTO) 81.9 % (42-75); PLATELET COUNT 223 X10'3 (140-440); RED BLOOD COUNT 3.52 X10'6 (4.70-6.10); RED CELL DISTRIBUTION WIDTH 17.3 % (11.5-14.5); WHITE BLOOD COUNT 8.1 X10'3 (4.5-11.0)
[2024-03-04 06:21] LABS: ALANINE AMINOTRANSFERASE 13 U/L (12-78); ALBUMIN 2.9 G/DL (3.4-5.0); ALBUMIN/GLOBULIN RATIO 0.9 (1.1-1.5); ALKALINE PHOSPHATASE 51 IU/L (46-116); ANION GAP 7 (8-16); ASPARTATE AMINO TRANSFERASE 14 U/L (10-37); BILIRUBIN,TOTAL 0.8 MG/DL (0.1-1.0); BLOOD UREA NITROGEN 15 MG/DL (7-18); BUN/CREATININE RATIO 18.3 (10.0-20.0); CALCIUM 8.5 MG/DL (8.5-10.1); CHLORIDE 103 MMOL/L (99-107); CREATININE 0.82 MG/DL (0.60-1.10); GLUCOSE 104 MG/DL (70-104); POTASSIUM 4.2 MMOL/L (3.5-5.1); SODIUM 138 MMOL/L (135-145); TOTAL CARBON DIOXIDE 28.3 MMOL/L (24-32); TOTAL PROTEIN 6.2 G/DL (6.4-8.2); eCRCL 93 ML/MIN; eGFR > 90 ML/MIN
[2024-03-04 10:00] VITALS: BP 136/80; PULSE 89; RESP 16; TEMP 98.7; O2SAT 92
[2024-03-04] MEDS ORDERED: augmentin PO (16:14)
[2024-03-04] MEDS: HYDROcodone/acetaminophen 5mg/325mg tablet PO PRN (16:48)
== END 2024-03-04 17:51 | disposition home or self-care (01) | DRG 345 ==
LOC: ER 12:25 → ORTHO 4S 17:49
PROVIDERS: ADMIT Internal Medicine; ATTEND Internal Medicine
PROC: BW211ZZ Computerized Tomography (CT Scan) of Abdomen and Pelvis using Low Osmolar Contrast (ICD-10-PCS; 2024-03-02)
PROC: 0D9P7ZZ Drainage of Rectum, Via Natural or Artificial Opening (ICD-10-PCS; principal; 2024-03-02 18:49)
DX: K61.2 Anorectal abscess (principal); I50.32 Chronic diastolic (congestive) heart failure; D72.829 Elevated white blood cell count, unspecified; Z66 Do not resuscitate; I11.0 Hypertensive heart disease with heart failure; Z79.899 Other long term (current) drug therapy; Z87.891 Personal history of nicotine dependence
CPT/HCPCS: 36415; 74177; 80053; 81001; 82948; 83605; 84145; 85025; 85651; 86140; 87040; 87070; 87075; 87077; 87186; 97116; 97161; 97530; 99285; A4215; A4615; A4618; A6253; A6258; A6407; A6449; A7000; G0378; J0131; J0694; J1100; J1644; J1885; J1940; J2003; J2250; J2270; J2405; J2543; J2704; J2710; J3010; J3490; J7030; J7120; Q9967

== ENCOUNTER 2024-03-18 11:49 | Inpatient (IN) | payer MEDICARE ==
[~2024-03-18] VITALS: Ht 188 cm; Wt 117.7 kg
[~2024-03-18 11:49] MED LIST changes: +augmentin PO
[2024-03-18 12:49] LABS: BASOPHILS % (AUTO) 0.6 % (0-1); EOSINOPHILS # (AUTO) 0.2 X10'3 (0-0.9); EOSINOPHILS % (AUTO) 2.3 % (0-6); HEMATOCRIT 33.2 % (42.0-52.0); HEMOGLOBIN 10.7 g/dl (14.0-17.9); LYMPHOCYTES # (AUTO) 0.7 X10'3 (1.1-4.8); LYMPHOCYTES % (AUTO) 8.8 % (21-51); MEAN CORPUSCULAR HEMOGLOBIN 29.6 PG (27.0-31.0); MEAN CORPUSCULAR HGB CONC 32.3 g/dL (33.0-36.5); MEAN CORPUSCULAR VOLUME 91.6 FL (78-98); MEAN PLATELET VOLUME 6.7 FL (7.4-10.4); MONOCYTES # (AUTO) 0.4 X10'3 (0-0.9); MONOCYTES % (AUTO) 5.4 % (2-12); NEUTROPHILS # (AUTO) 6.6 X10'3 (1.8-7.7); NEUTROPHILS % (AUTO) 82.9 % (42-75); PLATELET COUNT 237 X10'3 (140-440); RED BLOOD COUNT 3.62 X10'6 (4.70-6.10); RED CELL DISTRIBUTION WIDTH 17.1 % (11.5-14.5); WHITE BLOOD COUNT 7.9 X10'3 (4.5-11.0)
[2024-03-18 13:03] LABS: ALBUMIN 3.3 G/DL (3.4-5.0); ANION GAP 4 (8-16); BLOOD UREA NITROGEN 25 MG/DL (7-18); BUN/CREATININE RATIO 39.1 (10.0-20.0); CALCIUM 8.8 MG/DL (8.5-10.1); CHLORIDE 106 MMOL/L (99-107); CREATININE 0.64 MG/DL (0.60-1.10); GLUCOSE 96 MG/DL (70-104); POTASSIUM 4.5 MMOL/L (3.5-5.1); SODIUM 142 MMOL/L (135-145); TOTAL CARBON DIOXIDE 31.6 MMOL/L (24-32); eCRCL 123 ML/MIN; eGFR > 90 ML/MIN
[2024-03-18] MEDS ORDERED: IOHEXOL 12MG/ML oral solution 500 ML BOTTLE PO ONE (16:40)
[2024-03-18 17:21] LABS: C-REACTIVE PROTEIN 1.79 MG/DL (0.0-0.5)
[2024-03-18] MEDS: morphine 2 MG/ML inj. syringe IV PRN (17:34)
[2024-03-18] MEDS: piperacillin/tazo 3.375gm/50ml 50 ML IV ONE (17:35)
[2024-03-18] MEDS: normal saline 1000ML IV soln IVB ONE (17:35)
[2024-03-18] MEDS: IOHEXOL 12MG/ML oral solution 1,000 ML BOTTLE-COMPOUND-RX PO ONE (18:24)
[2024-03-18] MEDS: metroNIDAZOLE-Flagyl 500mg/NS 100 ML IV ONE (18:25)
[2024-03-18 18:56] LABS: BILIRUBIN,URINE NEGATIVE (Neg); CLARITY,URINE CLEAR (Clear); COLOR,URINE YELLOW (Yellow); GLUCOSE, URINE NEGATIVE (Neg); KETONES,URINE NEGATIVE (Neg); LEUKOCYTE ESTERASE ,URINE NEGATIVE (Neg); NITRITES, URINE NEGATIVE (Neg); OCCULT BLOOD,URINE NEGATIVE (Neg); PROTEIN,URINE NEGATIVE (Neg); UROBILINOGEN,URINE 0.2 E.U/dL (0.2-1.0)
[2024-03-18 19:00] LABS: UA COLLECTION TYPE CLN CATCH MIDSTREAM
[2024-03-18] MEDS: ondansetron/PF 4mg/2ml inj IV ONE (19:15)
[2024-03-18] MEDS ORDERED: iohexol 300mg/ml 100ml inj. ONE (19:35)
[2024-03-18] MEDS: HYDROmorphone 1 mg/ml syringe IV ONE (19:35)
[2024-03-18] MEDS ORDERED: magnesium Cl slow-release 64mg tablet PO PRN (20:25)
[2024-03-18] MEDS ORDERED: potassium Cl 40MEQ/1/2NS 520ml 520 ML IV PRN (20:25)
[2024-03-18] MEDS ORDERED: magnesium sulf-water 4G/100mL 100 ML IV PRN (20:25)
[2024-03-18] MEDS ORDERED: potassium Cl 20 mEq SR tablet PO PRN ×2 (20:25)
[2024-03-18] MEDS ORDERED: HYDROcodone/acetaminophen 10/325mg tab PO PRN (20:25)
[2024-03-18] MEDS ORDERED: acetaminophen 325mg tablet PO PRN (20:25)
[2024-03-18] MEDS ORDERED: morphine 2 MG/ML inj. syringe IV PRN ×2 (20:25)
[2024-03-18] MEDS ORDERED: ondansetron/PF 4mg/2ml inj IV PRN (20:25)
[2024-03-18] MEDS ORDERED: magnesium sulf-water 2g/50mL 50 ML IV PRN (20:25)
[2024-03-18 20:52] LABS: HEMOGLOBIN A1C 5.8 % (4.5-6.2)
[2024-03-19] MEDS: piperacillin/tazo 4.5gm/100ml 100 ML IV SCH (01:19)
[2024-03-19 03:34] LABS: BASOPHILS % (AUTO) 0.7 % (0-1); EOSINOPHILS # (AUTO) 0.2 X10'3 (0-0.9); EOSINOPHILS % (AUTO) 2.7 % (0-6); HEMATOCRIT 31.3 % (42.0-52.0); HEMOGLOBIN 10.3 g/dl (14.0-17.9); LYMPHOCYTES # (AUTO) 0.7 X10'3 (1.1-4.8); LYMPHOCYTES % (AUTO) 10.9 % (21-51); MEAN CORPUSCULAR HEMOGLOBIN 29.8 PG (27.0-31.0); MEAN CORPUSCULAR HGB CONC 32.9 g/dL (33.0-36.5); MEAN CORPUSCULAR VOLUME 90.4 FL (78-98); MEAN PLATELET VOLUME 6.3 FL (7.4-10.4); MONOCYTES # (AUTO) 0.4 X10'3 (0-0.9); MONOCYTES % (AUTO) 6.5 % (2-12); NEUTROPHILS # (AUTO) 5.2 X10'3 (1.8-7.7); NEUTROPHILS % (AUTO) 79.2 % (42-75); PLATELET COUNT 206 X10'3 (140-440); RED BLOOD COUNT 3.46 X10'6 (4.70-6.10); RED CELL DISTRIBUTION WIDTH 17.2 % (11.5-14.5); WHITE BLOOD COUNT 6.6 X10'3 (4.5-11.0)
[2024-03-19 03:45] LABS: ALBUMIN 3.1 G/DL (3.4-5.0); ANION GAP 3 (8-16); BLOOD UREA NITROGEN 19 MG/DL (7-18); BUN/CREATININE RATIO 28.8 (10.0-20.0); CALCIUM 8.5 MG/DL (8.5-10.1); CHLORIDE 104 MMOL/L (99-107); CREATININE 0.66 MG/DL (0.60-1.10); GLUCOSE 111 MG/DL (70-104); MAGNESIUM 1.8 MG/DL (1.5-2.4); POTASSIUM 3.8 MMOL/L (3.5-5.1); SODIUM 139 MMOL/L (135-145); TOTAL CARBON DIOXIDE 32.4 MMOL/L (24-32); eCRCL 119 ML/MIN; eGFR > 90 ML/MIN
[2024-03-19] MEDS: K and/or MAG REPLACEMENT MC SCH (08:00)
[2024-03-19] MEDS: docusate sod 100mg capsule PO SCH (08:11)
[2024-03-19] MEDS: heparin, porcine 5000 units/ml vial SQ SCH (08:16)
[2024-03-19 14:45] VITALS: BP 145/62; PULSE 80; RESP 14; TEMP 97.5; O2SAT 93
[2024-03-19] MEDS: HYDROcodone/acetaminophen 5mg/325mg tablet PO PRN (16:39)
[2024-03-19 18:30] VITALS: BP 155/22; PULSE 79; RESP 18; TEMP 98.1; O2SAT 90
[2024-03-19 22:00] VITALS: BP 131/69; PULSE 77; RESP 18; TEMP 98.7; O2SAT 93
[2024-03-20 05:47] LABS: BASOPHILS # (AUTO) 0.1 X10'3 (0-0.2); BASOPHILS % (AUTO) 0.9 % (0-1); EOSINOPHILS # (AUTO) 0.2 X10'3 (0-0.9); HEMATOCRIT 31.3 % (42.0-52.0); HEMOGLOBIN 10.3 g/dl (14.0-17.9); LYMPHOCYTES # (AUTO) 0.8 X10'3 (1.1-4.8); MEAN CORPUSCULAR HEMOGLOBIN 29.6 PG (27.0-31.0); MEAN CORPUSCULAR HGB CONC 32.8 g/dL (33.0-36.5); MEAN CORPUSCULAR VOLUME 90.2 FL (78-98); MEAN PLATELET VOLUME 6.7 FL (7.4-10.4); MONOCYTES # (AUTO) 0.6 X10'3 (0-0.9); NEUTROPHILS % (AUTO) 75.1 % (42-75); PLATELET COUNT 217 X10'3 (140-440); RED BLOOD COUNT 3.47 X10'6 (4.70-6.10); RED CELL DISTRIBUTION WIDTH 17.1 % (11.5-14.5); WHITE BLOOD COUNT 6.6 X10'3 (4.5-11.0)
[2024-03-20 06:00] VITALS: BP 115/59; PULSE 72; RESP 18; TEMP 98.4; O2SAT 91
[2024-03-20 06:03] LABS: ANION GAP 3 (8-16); BLOOD UREA NITROGEN 17 MG/DL (7-18); BUN/CREATININE RATIO 21.5 (10.0-20.0); CALCIUM 8.7 MG/DL (8.5-10.1); CHLORIDE 104 MMOL/L (99-107); CREATININE 0.79 MG/DL (0.60-1.10); GLUCOSE 108 MG/DL (70-104); MAGNESIUM 2.1 MG/DL (1.5-2.4); POTASSIUM 4.1 MMOL/L (3.5-5.1); SODIUM 141 MMOL/L (135-145); eCRCL 100 ML/MIN; eGFR > 90 ML/MIN
[2024-03-20 10:00] VITALS: BP 146/72; PULSE 80; RESP 20; TEMP 98.1; O2SAT 94
[2024-03-20] MEDS ORDERED: AMOX-580 PO (11:19)
[2024-03-20] MEDS ORDERED: HYDR-3965 PO (11:19)
[2024-03-20 12:05] VITALS: BP_SYST 146; PULSE 80
[2024-03-20] MEDS: lisinopril 20mg tablet PO SCH (12:05)
[2024-03-20] MEDS: furosemide 40mg tablet PO SCH (12:05)
[2024-03-20 14:19] VITALS: RESP 14
[2024-03-20] MEDS ORDERED: carvedilol 6.25mg tablet PO SCH (20:00)
== END 2024-03-20 15:20 | disposition home health service (06) | DRG 394 ==
LOC: ER 11:50 → ED HOLD 20:27 → ORTHO 4S 03-19 15:00
PROVIDERS: ADMIT Internal Medicine Critical Care Medicine; ATTEND Internal Medicine
PROC: BW211ZZ Computerized Tomography (CT Scan) of Abdomen and Pelvis using Low Osmolar Contrast (ICD-10-PCS; principal; 2024-03-18)
DX: K61.2 Anorectal abscess (principal); I50.32 Chronic diastolic (congestive) heart failure; Z66 Do not resuscitate; D64.9 Anemia, unspecified; I11.0 Hypertensive heart disease with heart failure
CPT/HCPCS: 36415; 74177; 80048; 81003; 83036; 83605; 83735; 84145; 85025; 85651; 86140; 87040; 97116; 97161; 97530; 99285; A4615; A6449; G0378; J1171; J1644; J2270; J2543; J3490; J7030; Q9967

== ENCOUNTER 2024-12-07 14:34 | Outpatient (CLI) | payer MEDICARE ==
[~2024-12-07 14:34] MED LIST changes: +ALBU17AE26 IH; +BUDE10.22 INH; +FURO-150 PO; -FURO40TA4 PO; -IBUP-1985 PO; -ONDA-243 PO; -SIME80TA16 PO; +SPIR25TA PO; +TRAM50TA2 PO; -augmentin PO
--- NOTE | 2024-12-07 19:22 | RADIOLOGY REPORT ---
PROCEDURE: MR MRI THORACIC SPINE INDICATION: LOW BACK PAIN, UNSPECIFIED Exam Date: 12/07/2024 02:54 PM COMPARISON: None TECHNIQUE: MRI thoracic spine without intravenous contrast. FINDINGS: Severe chronic appearing anterior wedge compression fracture at T11. No associated marrow edema to suggest an acute injury. Mild bony retropulsion measuring approximately 3 mm. Vertebral body heights otherwise maintained. Focal kyphosis at T11 secondary to the compression fracture. No concerning marrow signal abnormality. 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 No paravertebral soft tissue swelling. No epidural abnormality. [id number] degenerative disc disease throughout the thoracic spine with disc height loss and disc desiccation. No significant spinal stenosis. No cord signal abnormality. IMPRESSION: Severe chronic appearing anterior wedge compression deformity at T11. No recent compression fractures. No significant spinal stenosis.
== END 2024-12-07 23:59 | disposition home or self-care (01) ==
LOC: MRI02 14:34
PROVIDERS: ATTEND General Practice
DX: S22.080A Wedge compression fracture of T11-T12 vertebra, initial encounter for closed fracture (principal); M51.34 Other intervertebral disc degeneration, thoracic region; M54.50 Low back pain, unspecified; X58.XXXA Exposure to other specified factors, initial encounter; Y99.8 Other external cause status; Y93.89 Activity, other specified; Y92.89 Other specified places as the place of occurrence of the external cause
CPT/HCPCS: 72146